=== PATIENT | male | born 1985 | race Caucasian/White ===

== ENCOUNTER 2019-08-23 01:38 | Emergency (ER) | payer SELFPAY ==
[~2019-08-23] VITALS: Ht 172.7 cm; Wt 68.0 kg
[2019-08-23] MEDS ORDERED: BACITRACIN ZINC OINT UDPKT TOP ONE (03:15)
[2019-08-23] MEDS ORDERED: TETANUS, DIPHTHERIA, PERTUSSIS VAC/PF 0.5ML (>7YR OLD) IM ONE (03:15)
[2019-08-23] MEDS ORDERED: LIDOCAINE HCL/PF 1% 10 MG/ML 5ML VIAL IJ ONE (03:15)
[2019-08-23 07:44] VITALS: BP 110/62
== END 2019-08-23 07:43 | disposition home or self-care (01) ==
LOC: ER 01:38
DX: S01.81XA Laceration without foreign body of other part of head, initial encounter (principal); F10.129 Alcohol abuse with intoxication, unspecified; Y90.9 Presence of alcohol in blood, level not specified; X58.XXXA Exposure to other specified factors, initial encounter; Y93.89 Activity, other specified; Y92.89 Other specified places as the place of occurrence of the external cause; R03.0 Elevated blood-pressure reading, without diagnosis of hypertension; Z23 Encounter for immunization
CPT/HCPCS: 70450; 90471; 90715; 99284; J3490; Z7610